=== PATIENT | male | born 1990 | race Caucasian/White ===

== ENCOUNTER 2020-08-08 03:42 | Emergency (ER) | payer OTHER ==
[~2020-08-08] VITALS: Ht 175.3 cm; Wt 95.3 kg
[2020-08-08 03:50] VITALS: BP 124/82
[2020-08-08] MEDS ORDERED: NACL 0.9% 1,000 ML IV ONE ×2 (04:05)
[2020-08-08] MEDS ORDERED: ceFAZolin 1,000 MG VIAL ONE (04:17)
[2020-08-08 04:26] LABS: BASOPHILS # (AUTO) 0.1 K/uL (0.00-0.22); BASOPHILS % (AUTO) 0.9 % (0.0-2.0); HEMATOCRIT 48.4 % (36-52); LYMPHOCYTES # (AUTO) 1.4 K/uL (2.0-11.5); LYMPHOCYTES % (AUTO) 10.8 % (20.5-51.1); MEAN CORPUSCULAR HEMOGLOBIN 29 pg (27-31); MEAN CORPUSCULAR HGB CONC 33 g/dL (33-37); MEAN CORPUSCULAR VOLUME 88.8 fL (80-94); MONOCYTES # (AUTO) 0.4 K/uL (0.8-1.0); MONOCYTES % (AUTO) 3.4 % (1.7-9.3); NEUTROPHILS # (AUTO) 10.8 K/uL (1.8-7.7); NEUTROPHILS % (AUTO) 84.9 % (42.2-75.2); PLATELET COUNT (AUTO) 377 K/uL (140-450); RED BLOOD CELL COUNT(AUTO) 5.45 MIL/uL (4.20-6.10); RED CELL DISTRIBUTION WIDTH 14.2 % (11.6-13.7); WHITE BLOOD COUNT (AUTO) 12.7 K/uL (4.8-10.8)
[2020-08-08 04:43] LABS: BARBITURATE, URINE NEGATIVE ng/ml (NEG <=200); BENZODIAZEPINE, URINE NEGATIVE ng/mL (NEG <=200); CANNABINOID, URINE POSITIVE ng/mL (NEG <=50); COCAINE, URINE POSITIVE ng/mL (NEG <=300); OPIATE, URINE NEGATIVE ng/mL (NEG <=2000); PHENCYCLIDINE SCREEN,URINE NEGATIVE ng/mL (NEG <=25)
[2020-08-08 05:00] LABS: ALBUMIN 4.9 g/dL (3.4-5.0); ANION GAP 23.3 (8-16); CARBON DIOXIDE 18.7 mmol/L (21-32); TOTAL BILIRUBIN 0.3 mg/dL (0.0-1.0)
[2020-08-08] MEDS ORDERED: IBUPROFEN 800 MG TAB PO ONE (06:15)
[2020-08-08] MEDS ORDERED: NEOMYCIN/POLYMYXIN/BACITRACIN OIN 15 GM TUBE TP ONE (06:15)
[2020-08-08 06:27] VITALS: BP 130/57
== END 2020-08-08 06:27 | disposition home or self-care (01) ==
LOC: MED 03:42
DX: S06.0X9A Concussion with loss of consciousness of unspecified duration, initial encounter (principal); R41.82 Altered mental status, unspecified; M79.641 Pain in right hand; M79.642 Pain in left hand; Y04.2XXA Assault by strike against or bumped into by another person, initial encounter; Y93.89 Activity, other specified; Y92.511 Restaurant or cafe as the place of occurrence of the external cause; Y99.8 Other external cause status
CPT/HCPCS: 36415; 70450; 70486; 71045; 71250; 72125; 73130; 74176; 80053; 80305; 84484; 85025; 90471; 90715; 93005; 96361; 96365; 99291; G0482; J0690; J7030; J7060